=== PATIENT | female | born 1960 | race Caucasian/White ===

== ENCOUNTER → 2016-07-25 | Outpatient (CLI) | payer BC ==
[~2016-07-25] MED LIST: CYCL10TA6 PO; FLUO20CA34 PO; IBUP-1050 PO; LEVO100T PO; METH4PAK PO; OXYC1TAB3 PO; PRLSR20 PO
== END | disposition home or self-care (01) ==
LOC: C.PAPS 15:14
PROVIDERS: ATTEND Obstetrics & Gynecology
DX: Z01.419 Encounter for gynecological examination (general) (routine) without abnormal findings (principal)

== ENCOUNTER → 2016-08-31 | Outpatient (CLI) | payer BC | END | disposition home or self-care (01) | LOC: C.MAMM 08:35 | PROVIDERS: ATTEND Obstetrics & Gynecology | DX: M85.88 Other specified disorders of bone density and structure, other site (principal); R63.4 Abnormal weight loss; Z98.84 Bariatric surgery status; M85.851 Other specified disorders of bone density and structure, right thigh; M85.852 Other specified disorders of bone density and structure, left thigh ==

== ENCOUNTER 2016-09-14 14:49 | Emergency (ER) | payer BC ==
[~2016-09-14] VITALS: Ht 157.5 cm; Wt 78.0 kg
[~2016-09-14 14:49] MED LIST changes: -CYCL10TA6 PO; -METH4PAK PO; -OXYC1TAB3 PO; -PRLSR20 PO
[2016-09-14 14:53] VITALS: TEMP 36.5; Ht 157.5 cm; Wt 78.0 kg
[2016-09-14] MEDS ORDERED: PRLSR20 PO (15:09)
[2016-09-14] MEDS ORDERED: OXYCODONE HCL IR 5 MG TAB (IMMEDIATE RELEASE) PO STA (15:44)
[2016-09-14] MEDS ORDERED: DEXAMETHASONE SOD INJ 10 MG/ML VIAL IM ONE (15:45)
[2016-09-14] MEDS ORDERED: CYCL10TA6 PO (15:46)
[2016-09-14] MEDS ORDERED: METH4PAK PO (16:10)
[2016-09-14] MEDS ORDERED: OXYC1TAB3 PO (16:10)
[2016-09-14 16:18] VITALS: BP 112/75; PULSE 76; O2SAT 95
--- NOTE | 2016-09-14 18:51 | EMERGENCY ROOM VISIT NOTE ---
History First contact with patient: 15:13 Chief Complaint: BACK PAIN Stated Complaint: BACK TO LEG PAIN History of Present Illness The patient is a 56 year old female who presents to the Emergency Room with complaints of lower back pain radiating down the left lower extremity to the calf. The patient reports that she has had this discomfort for the past 2 weeks. She has had problems with her back in the past. The patient reports that she freely travels to [place] where she is from, and has a doctor in [place] that has provided her with prescriptions for Flexeril and meloxicam. The patient is also under local management of Maci Colon. The patient reports that she has to fly back to [place] tomorrow, and reports that she is in too much pain to do so. Her sister, who is a physician, suggested that she come to the emergency department for a shot of Decadron and pain medications. At the current time, the patient denies any left lower extremity weakness, foot drop, saddle anesthesias or bladder/bowel incontinence. Her pain is worsened with sitting, and better when lying on her side or back. She currently rates her discomfort a 9 out of 10. Review of Systems 10 system review was performed and was negative except for pertinent positives and negatives as indicated in history of present illness Past Medical/Surgical History Medical Problems: (1) Ac Posthemorrhag Anemia (2) Acute Cholecystitis (3) Depressive Disorder Nec (4) Diaphragmatic Hernia Without Obstruction Or Gangrene (5) Diverticulosis Colon (W/O Ment Of Hemorrhage) (6) Esophagitis, Unspecified (7) Hypothyroidism Nos Surgical Problems: (1) Bariatric Surgery Status (2) History of cholecystectomy Family History FH: cancer FH: diabetes mellitus FH: hypertension Social History Smoking Status: Never Smoker Alcohol Use: none Marital Status: Occupation Status: employed Current/Historical Medications Scheduled Fluoxetine Hcl (Prozac), 20 MG PO QAM Levothyroxine Sodium (Synthroid), 100 MCG PO QAM Methylprednisolone (Medrol Dosepak), 0 PO DAILY Omeprazole (Prilosec), 20 MG PO DAILY Scheduled PRN Cyclobenzaprine Hcl (Flexeril), 10 MG PO Q12 PRN for Muscle Spasms Ibuprofen (Advil), 400 MG PO DAILY PRN for Pain Oxycodone Ir (Roxicodone Ir), 1-2 TAB PO Q4H PRN for Pain Physical Exam Vital Signs Date Time Temp Pulse Resp B/P (MAP) Pulse Ox O2 Delivery O2 Flow Rate FiO2 09/14/16 16:18 76 16 112/75 95 09/14/16 14:53 36.5 96 16 124/80 95 Room Air Pain Rating (0-10): 8.0 Physical Exam CONSTITUTIONAL: Healthy and well nourished. Alert and oriented X 3 with positive affect. Patient appears in moderate discomfort from pain. HEENT: Normocephalic, atraumatic. Pupils equal, round and reactive. NECK: Full active range of motion without discomfort. RESPIRATORY: Clear to auscultation bilaterally with no wheezing, crackles, rhonchi or stridor. CARDIOVASCULAR: Regular rate and rhythm with no murmurs, rubs or gallops. GASTROINTESTINAL: Bowel sounds present in all quadrants. Soft and nontender to palpation. MUSCULOSKELETAL: Examination shows generalized tenderness to palpation through the left SI joint and sciatic notch. Negative logroll. Positive straight leg raise. Ankle plantar/dorsiflexion strength is 5 out of 5 and symmetric bilaterally. Pedal pulses are intact. INTEGUMENTARY: No rash or other significant dermatologic conditions noted. NEUROLOGIC: Left foot and toes are sensory intact with deep tendon reflexes 2+ and symmetric bilaterally. Medical Decision & Procedures Medications Administered Medications (Trade) Dose Ordered Sig/Fortino Route Start Time Stop Time Status Last Admin Dose Admin Dexamethasone Sodium Phosphate (Decadron Inj) 10 mg NOW ONCE IM 09/14/16 15:45 09/14/16 15:46 DC 09/14/16 15:53 10 MG Oxycodone HCl (Roxicodone Immediate Rel Tab) 5 mg NOW STAT PO 09/14/16 15:44 09/14/16 15:45 DC 09/14/16 15:53 5 MG ED Course Patient history and physical exam were performed. Nurse's notes were reviewed. Vital signs were reviewed and normal. The patient did provide several photos of the prescriptions that she has as most of them are in a different language. I was able to take out that these prescriptions were for cyclobenzaprine and meloxicam. I am in agreement with the patient's physician sister, and recommended administering Decadron 10 mg IM. I also suggested providing additional pain medication as she reports the pain is excruciating. She has had constipation with pain medications in the past, however her told her that if she will need adequate pain relief to travel, she will need something stronger. The patient was therefore administered Decadron 10 mg IM, and OxyIR 5 mg while in the emergency department. She was provided a prescription for Medrol Dosepak and OxyIR 5 mg. She was encouraged to continue with her muscle relaxer and meloxicam as needed for additional relief. She was encouraged to follow-up with her PCP in [place] as needed for further management. The patient was happy with plan of care, voiced understanding of all discharge instructions, and rated her pain a 6 out of 10 at the time of discharge. Medical Decision The patient provides no history, nor does she have physical exam findings concerning for cauda equina syndrome. I also do not suspect spinal abscess or hematoma given patient history. [facility] Drug Monitoring Program Search Results: patient reviewed within database Medication Reconcilliation Current Medication List: was personally reviewed by me Blood Pressure Screening Patient's blood pressure: Normal blood pressure Impression Primary Impression: Left lumbar radiculitis Departure Information Dispostion Home / Self-Care Prescriptions Oxycodone Ir (Roxicodone Ir) 5 Mg Tab 1-2 TAB PO Q4H Y for Pain, #15 TAB For Initial Treatment Prov: Miguel Jewell PA 09/14/16 Methylprednisolone (MEDROL DOSEPAK) 4 Mg Inocente 0 PO DAILY, #1 PKT Prov: Miguel Jewell PA 09/14/16 Forms HOME CARE DOCUMENTATION FORM, IMPORTANT VISIT INFORMATION Patient Instructions My [facility] Additional Instructions Intermittently apply ice to lower back. Try to avoid sitting for long periods of time or heavy lifting. Continue with your meloxicam. You may also continue with your muscle relaxer. Take Medrol Dosepak as prescribed, next dose tomorrow morning or early afternoon. Take oxycodone as needed for worse pain. Do not drink alcohol while taking all of these medications. Follow-up with your family doctor in [place] as needed for further management.
== END 2016-09-14 16:19 | disposition home or self-care (01) ==
LOC: C.EDB 14:49 → C.EDD 16:19
DX: M54.16 Radiculopathy, lumbar region (principal); E03.9 Hypothyroidism, unspecified; F32.9 Major depressive disorder, single episode, unspecified; K20.9 Esophagitis, unspecified; Z98.84 Bariatric surgery status; Z90.49 Acquired absence of other specified parts of digestive tract; Z83.3 Family history of diabetes mellitus; Z82.49 Family history of ischemic heart disease and other diseases of the circulatory system; Z79.899 Other long term (current) drug therapy

== ENCOUNTER → 2016-09-14 | Outpatient (CLI) | payer BC ==
--- NOTE | 2016-09-14 12:13 | DIAGNOSTIC IMAGING REPORT ---
ABDOMEN COMPLETE (US) CLINICAL HISTORY: Generalized abdominal pain COMPARISON STUDY: 06/16/2015 FINDINGS: The pancreas appears normal as visualized. The gallbladder surgically absent. There is no ductal dilatation. The common bile duct measures 3 mm. No focal hepatic masses are visualized. There is borderline increase in hepatic echogenicity. The right kidney measures 10.5 cm in length. The left kidney measures 10.9 cm in length. There is a 6 mm right parapelvic cyst. Spleen measures 9.3 cm in length. No splenic masses are visualized. There is no evidence of abdominal aortic dilatation. IMPRESSION: 1. Borderline increase in hepatic echogenicity 2. Surgically absent gallbladder 3. No evidence of ductal dilatation. Electronically signed by: Rey Duff M.D. 09/14/2016 12:11 PM Dictated Date/Time: 09/14/2016 12:10 PM
== END | disposition home or self-care (01) ==
LOC: C.ULTR 11:17
PROVIDERS: ATTEND Physician Assistant Medical
DX: R10.9 Unspecified abdominal pain (principal)

== ENCOUNTER → 2016-10-25 | Outpatient (CLI) | payer BC ==
[~2016-10-25] MED LIST changes: +CYCL10TA6 PO; +OXYC1TAB3 PO; +PRLSR20 PO
--- NOTE | 2016-10-26 12:40 | MAMMOGRAPHY REPORT ---
BILATERAL DIGITAL SCREENING MAMMOGRAM TOMOSYNTHESIS WITH CAD: 10/25/2016 CLINICAL HISTORY: Routine screening. Patient has no complaints. TECHNIQUE: Breast tomosynthesis in addition to standard 2D mammography was performed. Current study was also evaluated with a Computer Aided Detection (CAD) system. COMPARISON: Comparison is made to exams dated: 10/07/2015 mammogram, 10/02/2014 mammogram, 09/23/2014 ma mmogram, 04/15/2012 mammogram, 05/14/2013 mammogram, and 04/10/2011 mammogram - [facility] nter. BREAST COMPOSITION: The tissue of both breasts is heterogeneously dense, which may obscure small mas ses. FINDINGS: No suspicious masses, calcifications, or areas of architectural distortion are noted in ei ther breast. There has been no significant interval change compared to prior exams. Scattered bilater al benign-appearing calcifications are not significantly changed. Small benign-appearing mass in the left lateral breast is decreased in size, confirming benignity. No suspicious mass, architectural distortion or cluster of microcalcifications is seen. IMPRESSION: ACR BI-RADS CATEGORY 2: BENIGN There is no mammographic evidence of malignancy. A 1 year screening mammogram is recommended. The pa tient will receive written notification of the results. Approximately 10% of breast cancers are not detected with mammography. A negative mammographic report should not delay biopsy if a clinically suggestive mass is present. Joyce Nick M.D. /:10/26/2016 07:43:24 Senior Sharepoint Architect: Ketty MONTEJO)(Jake), [facility] letter sent: Normal 1/2 BI-RADS Code: ACR BI-RADS Category 2: Benign
== END | disposition home or self-care (01) ==
LOC: C.MAMM 17:04
PROVIDERS: ATTEND Obstetrics & Gynecology
DX: Z12.31 Encounter for screening mammogram for malignant neoplasm of breast (principal)